=== PATIENT | female | born 1990 | race African-American/Black ===

== ENCOUNTER 2020-12-19 02:32 | Emergency (ER) | payer OTHER ==
[~2020-12-19] VITALS: Ht 160 cm; Wt 61.9 kg
[2020-12-19 02:44] VITALS: Ht 160 cm; Wt 61.9 kg
[2020-12-19 03:49] LABS: PLATELET COUNT 445 x10^3mcL (179-408); RED CELL DISTRIBUTION WIDTH 14.6 % (12.3-17.7)
[2020-12-19] MEDS ORDERED: KEF500 PO (05:47)
[2020-12-19 06:02] VITALS: BP 136/76
== END 2020-12-19 06:02 | disposition home or self-care (01) ==
LOC: ED 02:32
PROVIDERS: Emergency Medicine
DX: O72.1 Other immediate postpartum hemorrhage (principal)